=== PATIENT | male | born 1955 | race Caucasian/White ===

== ENCOUNTER 2016-07-11 16:01 | Observation (INO) | payer BC ==
[2016-07-11] MEDS ORDERED: fentaNYL 100 MCG/2 ML INJ IVP ONE ×2 (16:25→18:06)
--- NOTE | 2016-07-11 16:30 | EDPHY ---
H & P Stated Complaint: Fell 4ft off ladder onto right side of back, pain with breathing - Personal History Current Tetanus Diphtheria and Acellular Pertussis (TDAP): Yes - Medical/Surgical History Hx Asthma: No Hx Chronic Respiratory Disease: No Hx Diabetes: No Hx Cardiac Disease: No Hx Renal Disease: No Hx Cirrhosis: No Hx Alcoholism: No Hx HIV/AIDS: No Hx Splenectomy or Spleen Trauma: No Other PMH: HTN, GERD, Hernis, Hypercholesterolemia - Social History Smoking Status: Never smoked Time Seen by Provider: 07/11/16 16:02 HPI/ROS: CHIEF COMPLAINT: right chest and abdominal pain post falling off ladder HISTORY OF PRESENT ILLNESS: 60-year-old male with no anticoagulant use arrives via private vehicle stating that shortly prior to arrival he was standing on a ladder, his feet were at a height of approximately 5 feet when the ladder slipped out and he fell onto the side of the ladder impacting his right ribs and right abdomen. . He is complaining of reproducible pain with inspiration, coughing, palpation to his chest and abdomen No head injury. No genitalia injury. no head injury , no neck pain or injury. No alcohol or drug use. No nausea or vomiting. No peripheral paresthesia, weakness, numbness. No dyspnea. PRIMARY CARE PROVIDER: Dr. Jin Helm REVIEW OF SYSTEMS: A ten point review of systems was performed and is negative with the exception of the items mentioned in the HPI PAST MEDICAL/SURGICAL HISTORY: no anticoagulant use, SOCIAL HISTORY: denies alcohol use at time of incident PHYSICAL EXAM 1) GENERAL: Well-developed, well-nourished, alert and oriented. Appears uncomfortable. Answering questions appropriately. 2) HEAD: Normocephalic, atraumatic 3) HEENT: Pupils equal, round, reactive to light bilaterally. Negative Horners. Nasopharynx, oropharynx, clear. No deformity or angulation of nose. No septal hematoma. No rhinorrhea. No oral trauma. Ears bilaterally with normal tympanic membranes. No hemotympanum. No fluid or blood in the external auditory canal. No raccoon eyes. No Moe sign. T. 4) NECK: Posterior cervical spine is nontender, no stepoff, no effusion. Full range of motion which does not elicit any midline cervical spine pain, no posterior midline tenderness, no step-off. 5) LUNGS: Clear to auscultation bilaterally, no wheezes, no rhonchi, no retractions. No obvious signs of trauma. tender to palpation lower ribs mid axillary line. No visible signs of trauma. No crepitus No flaring, no grunting. Moving symmetrically. . 6) HEART: Regular rate and rhythm, 7) ABDOMEN: Guarding abdomen, tender to palpation right upper quadrant. Palpation of the right lower quadrant elicits right upper quadrant pain as well. No guarding, no rebound, no focal tenderness, no peritoneal signs, no signs of trauma, no ecchymosis 8) MUSCULOSKELETAL: Moving all extremities, no focal areas of tenderness, no obvious trauma. 9) BACK: No midline vertebral tenderness, no fluctuance, no step-off, no obvious trauma, no visual or palpable abnormality. 10) SKIN: No laceration. No abrasion DIFFERENTIAL DIAGNOSIS: In no particular include but limited to rib fracture, rib contusion, pneumothorax, hemothorax, liver fracture, liver contusion ( Mauricio Carrera) Constitutional: Initial Vital Signs Temperature (C) 36.6 C 07/11/16 16:09 Heart Rate 67 07/11/16 16:09 Respiratory Rate 18 07/11/16 16:09 Blood Pressure 139/84 H 07/11/16 16:09 O2 Sat (%) 98 07/11/16 16:09 O2 Delivery Mode Room Air Allergies/Adverse Reactions: No Known Allergies Allergy (Unverified 09/22/15 17:45) Home Medications: Medication Instructions Recorded Ascorbic Acid [Vitamin C 500 mg 500 mg PO 07/11/16 (*)] Ferrous Sulfate [Ferrous Sulf 325 325 mg PO 07/11/16 MG (*)] Losartan Potassium [Cozaar] 100 mg PO 07/11/16 Multivitamins [Multivitamin (*)] 1 tab PO 07/11/16 Omeprazole [Omeprazole] 20 mg PO 07/11/16 Simvastatin [Simvastatin] 40 mg PO 07/11/16 ED Images - Male Images Male Torso Head Front/Back: 1 - Areas objective and subjective pain Medical Decision Making - Diagnostics Imaging Results: Imaging Impressions Abdomen CT 07/11/16 16:36 Impression: 1. No evidence of solid organ or bowel injury. 2. No free fluid or fracture. 3. No evidence of aortic injury. Findings discussed with Emergency Department physician, Mauricio Carrera on 12/2016 at 5:[address] 07/11/16 16:36 Impression: 1. Acute right 6th through 11th rib fractures. 2. Tiny right anterobasilar pneumothorax. 3. Subtle pulmonary contusion versus aspiration in the right upper and lesser degree left upper lobe. No pulmonary laceration. 4. Minimal calcified coronary plaque. 5. No evidence of acute aortic injury. Findings discussed with Emergency Department Physician [employer] Operations Engineer, Matt Carrera PA-C, on July 11, 2016 at 1724 hours. Images reviewed by myself (Mauricio Carrera) ED Course/Re-evaluation: 5:25 p.m.: Phone consultation Dr. Rafael Barrow will evaluate patient ER and plan on admission. Patient's pain is controlled at this time and he agrees to admission. (Mauricio Carrera) Other Provider: PHYSICIAN DOCUMENTATION: The patient was evaluated and managed by the Physician [employer] Operations Engineer and myself. I have reviewed the chart and agree with the findings and plan of care as documented. In addition, I examined the patient myself at 1720. History confirmed as fall off a ladder this afternoon. Physical findings as follows: Speaks full sentences, breath sounds equal to auscultation. CT reviewed with Deandre WALKER. Plan for surgical consultation in the emergency department for trauma with multiple rib fractures and pneumothorax.. I am the secondary supervising physician. (Marek Hung) - Data Points Laboratory Results: Laboratory Results 07/11/16 16:30 07/11/16 16:30 07/11/16 07/11/16 07/11/16 16:30 16:30 16:29 WBC 12.68 10^3/uL H 10^3/uL (3.80-9.50) RBC 4.69 10^6/uL 10^6/uL (4.40-6.38) Hgb 14.3 g/dL g/dL (13.7-17.5) POC Hgb 14.6 gm/dL gm/dL (14.5-17.3) Hct 42.3 % % (40.0-51.0) POC Hct 43 % % (42.8-50.6) MCV 90.2 fL fL (81.5-99.8) MCH 30.5 pg pg (27.9-34.1) MCHC 33.8 g/dL g/dL (32.4-36.7) RDW 12.9 % % (11.5-15.2) Plt Count 540 10^3/uL H 10^3/uL (150-400) MPV 9.2 fL fL (8.7-11.7) Neut % (Auto) 85.0 % H % (39.3-74.2) Lymph % (Auto) 7.3 % L % (15.0-45.0) [place] % (Auto) 6.4 % % (4.5-13.0) Eos % (Auto) 0.5 % L % (0.6-7.6) Baso % (Auto) 0.4 % % (0.3-1.7) Nucleat RBC Rel Count 0.0 % % (0.0-0.2) Absolute Neuts (auto) 10.78 10^3/uL H 10^3/uL (1.70-6.50) Absolute Lymphs (auto) 0.93 10^3/uL L 10^3/uL (1.00-3.00) Absolute Monos (auto) 0.81 10^3/uL H 10^3/uL (0.30-0.80) Absolute Eos (auto) 0.06 10^3/uL 10^3/uL (0.03-0.40) Absolute Basos (auto) 0.05 10^3/uL 10^3/uL (0.02-0.10) Absolute Nucleated RBC 0.00 10^3/uL 10^3/uL (0-0.01) Immature Gran % 0.4 % % (0.0-1.1) Immature Gran # 0.05 10^3/uL 10^3/uL (0.00-0.10) POC Sodium 140 mEq/L mEq/L (134-144) Sodium 136 mEq/L mEq/L (134-144) POC Potassium 3.9 mEq/L mEq/L (3.3-5.0) Potassium 4.6 mEq/L mEq/L (3.5-5.2) POC Chloride 102 mEq/L mEq/L (96-108) Chloride 103 mEq/L mEq/L (97-110) Carbon Dioxide 24 mEq/l mEq/l (22-31) Anion Gap 9 mEq/L mEq/L (8-16) POC BUN 23 mg/dL mg/dL (7-23) BUN 23 mg/dL mg/dL (7-23) Creatinine 1.0 mg/dL mg/dL (0.7-1.3) POC Creatinine 1.0 mg/dL mg/dL (0.8-1.5) Estimated GFR > 60 Glucose 91 mg/dL mg/dL (70-100) POC Glucose 98 mg/dL mg/dL (70-100) Calcium 9.6 mg/dL mg/dL (8.5-10.4) Medications Given: Discontinued Medications Fentanyl (Sublimaze) 50 mcg IVP EDNOW ONE Stop: 07/11/16 16:26 Last Admin: 07/11/16 16:40 Dose: 50 mcg Fentanyl (Sublimaze) 50 mcg IVP EDNOW ONE Stop: 07/11/16 18:07 Last Admin: 07/11/16 18:16 Dose: 50 mcg Point of Care Test Results: 07/11/16 16:29 POC Sodium 140 POC Potassium 3.9 POC Chloride 102 POC BUN 23 POC Creatinine 1.0 POC Glucose 98 Departure - Departure Disposition: [facility] Inpatient Acute Clinical Impression: Pneumothorax on right Ribs, multiple fractures Qualifiers: Encounter type: initial encounter Fracture type: closed Laterality: right Qualified Code(s): S22.41XA - Multiple fractures of ribs, right side, initial encounter for closed fracture Condition: Good
[2016-07-11 16:45] LABS: % IMMATURE GRANULYOCYTES 0.4 % (0.0-1.1); ABSOLUTE IMMATURE GRANULOCYTES 0.05 10^3/uL (0.00-0.10); ADD DIFF? NO; ADD MORPH? NO; ADD SCAN? NO; ATYPICAL LYMPHOCYTE FLAG 0 (0-99); FRAGMENT RBC FLAG 0 (0-99); HEMATOCRIT 42.3 % (40.0-51.0); HEMOGLOBIN 14.3 g/dL (13.7-17.5); LEFT SHIFT FLG 10 (0-99); LIPEMIA HEMOLYSIS FLAG 90 (0-99); MEAN CELL HEMOGLOBIN 30.5 pg (27.9-34.1); MEAN CELL HEMOGLOBIN CONCENTR. 33.8 g/dL (32.4-36.7); MEAN CELL VOLUME 90.2 fL (81.5-99.8); MEAN PLATELET VOLUME 9.2 fL (8.7-11.7); PLATELET CLUMPS FLAG 0 (0-99); PLATELET COUNT 540 10^3/uL (150-400); RED BLOOD CELL COUNT 4.69 10^6/uL (4.40-6.38); RED CELL DISTRIBUTION WIDTH 12.9 % (11.5-15.2)
[2016-07-11] MEDS ORDERED: IOPAMIDOL (ISOVUE-300) 100 ML BTL ONE (16:48)
[2016-07-11 16:59] LABS: ANION GAP 9 mEq/L (8-16); CALCIUM 9.6 mg/dL (8.5-10.4); CARBON DIOXIDE 24 mEq/l (22-31); CHLORIDE 103 mEq/L (97-110); GLOMERULAR FILTRATION RATE > 60; GLUCOSE 91 mg/dL (70-100); POTASSIUM 4.6 mEq/L (3.5-5.2); SODIUM 136 mEq/L (134-144)
[2016-07-11] MEDS ORDERED: ONDANSETRON DISINTEGRATING 4 MG TAB PO PRN (18:20)
[2016-07-11] MEDS ORDERED: ONDANSETRON 4 MG/2 ML VIAL IVP PRN (18:20)
--- NOTE | 2016-07-11 18:20 | PDGENHP ---
History and Physical - Chief Complaint right chest pain - History of Present Illness Mr. Tavarez is a pleasant gentleman who was painting his bedroom this afternoon when the ladder went out from under him at 5 rungs up. He fell to the right side and landed on the ladder. He came in after experiencing sharp pains in the right chest with his . He was seen by Jayden Carrera PA-C who ordered a CT and multiple right sided rib fractures and a pneumothorax were noted. Trauma Surgical consult was requested. History Information - Allergies/Home Medication List Allergies/Adverse Reactions: No Known Allergies Allergy (Unverified 09/22/15 17:45) Home Medications: Ascorbic Acid [Vitamin C 500 mg (*)] 500 mg PO HS 07/11/16 [Last Taken Unknown] Ferrous Sulfate [Ferrous Sulf 325 MG (*)] 325 mg PO HS 07/11/16 [Last Taken Unknown] Losartan Potassium [Cozaar] 100 mg PO HS 07/11/16 [Last Taken 07/10/16] Multivitamins [Multivitamin (*)] 1 tab PO HS 07/11/16 [Last Taken Unknown] Omeprazole [Omeprazole] 20 mg PO HS 07/11/16 [Last Taken 07/10/16] Simvastatin [Simvastatin] 40 mg PO HS 07/11/16 [Last Taken 07/10/16] I have personally reviewed and updated: family history, medical history, social history (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 right shoulder surgery. left forearm surgery - Social History Smoking Status: Never smoked Alcohol Use: Rarely Drug Use: None Review of Systems Constitutional: Reports: recent injury EENMT: Reports: no symptoms Cardiac: Reports: chest pain (right lateral chest wall) Respiratory: Reports: shortness of breath Gastrointestinal: Reports: no symptoms Genitourinary: Reports: no symptoms Muscolosketal: Reports: other (right lateral chest wall pain, denies back or neck pain) Neurological: Reports: no symptoms, other (denies weakness, paresthesias, LOC/ head injury) Physical Exam Temp Pulse Resp BP Pulse Ox 36.6 C 67 18 139/84 H 98 07/11/16 16:09 07/11/16 16:09 07/11/16 16:09 07/11/16 16:09 07/11/16 16:09 Constitutional: appears nourished, uncomfortable Eyes: PERRL, EOMI, other (NCAT/trachea midline) Cardiovascular: regular rate and rhythym Peripheral Pulses: 3+: carotid (R), carotid (L), femoral (R), femoral (L), dorsalis-pedis (R), dorsalis-pedis (L) Respiratory: reduced air movement Gastrointestinal: normoactive bowel sounds, soft, non-tender abdomen Genitourinary: no bladder fullness Skin: warm, normal color Musculoskeletal: full muscle strength, other (no tenderness over the cervical, thoracic or lumbar spine) Neurologic: AAOx3, sensation intact bilaterally, CN II-XII Intact, other (DTRs symmetrical/no motor weakness) Lab Data & Imaging Review 07/11/16 16:30 07/11/16 16:30 WBC 12.68 10^3/uL (3.80-9.50) H 07/11/16 16:30 RBC 4.69 10^6/uL (4.40-6.38) 07/11/16 16:30 Hgb 14.3 g/dL (13.7-17.5) 07/11/16 16:30 POC Hgb 14.6 gm/dL (14.5-17.3) 07/11/16 16:29 Hct 42.3 % (40.0-51.0) 07/11/16 16:30 POC Hct 43 % (42.8-50.6) 07/11/16 16:29 MCV 90.2 fL (81.5-99.8) 07/11/16 16:30 MCH 30.5 pg (27.9-34.1) 07/11/16 16:30 MCHC 33.8 g/dL (32.4-36.7) 07/11/16 16:30 RDW 12.9 % (11.5-15.2) 07/11/16 16:30 Plt Count 540 10^3/uL (150-400) H 07/11/16 16:30 MPV 9.2 fL (8.7-11.7) 07/11/16 16:30 Neut % (Auto) 85.0 % (39.3-74.2) H 07/11/16 16:30 Lymph % (Auto) 7.3 % (15.0-45.0) L 07/11/16 16:30 [place] % (Auto) 6.4 % (4.5-13.0) 07/11/16 16:30 Eos % (Auto) 0.5 % (0.6-7.6) L 07/11/16 16:30 Baso % (Auto) 0.4 % (0.3-1.7) 07/11/16 16:30 Nucleat RBC Rel Count 0.0 % (0.0-0.2) 07/11/16 16:30 Absolute Neuts (auto) 10.78 10^3/uL (1.70-6.50) H 07/11/16 16:30 Absolute Lymphs (auto) 0.93 10^3/uL (1.00-3.00) L 07/11/16 16:30 Absolute Monos (auto) 0.81 10^3/uL (0.30-0.80) H 07/11/16 16:30 Absolute Eos (auto) 0.06 10^3/uL (0.03-0.40) 07/11/16 16:30 Absolute Basos (auto) 0.05 10^3/uL (0.02-0.10) 07/11/16 16:30 Absolute Nucleated RBC 0.00 10^3/uL (0-0.01) 07/11/16 16:30 Immature Gran % 0.4 % (0.0-1.1) 07/11/16 16:30 Immature Gran # 0.05 10^3/uL (0.00-0.10) 07/11/16 16:30 POC Sodium 140 mEq/L (134-144) 07/11/16 16:29 Sodium 136 mEq/L (134-144) 07/11/16 16:30 POC Potassium 3.9 mEq/L (3.3-5.0) 07/11/16 16:29 Potassium 4.6 mEq/L (3.5-5.2) 07/11/16 16:30 POC Chloride 102 mEq/L (96-108) 07/11/16 16:29 Chloride 103 mEq/L (97-110) 07/11/16 16:30 Carbon Dioxide 24 mEq/l (22-31) 07/11/16 16:30 Anion Gap 9 mEq/L (8-16) 07/11/16 16:30 POC BUN 23 mg/dL (7-23) 07/11/16 16:29 BUN 23 mg/dL (7-23) 07/11/16 16:30 Creatinine 1.0 mg/dL (0.7-1.3) 07/11/16 16:30 POC Creatinine 1.0 mg/dL (0.8-1.5) 07/11/16 16:29 Estimated GFR > 60 07/11/16 16:30 Glucose 91 mg/dL (70-100) 07/11/16 16:30 POC Glucose 98 mg/dL (70-100) 07/11/16 16:29 Calcium 9.6 mg/dL (8.5-10.4) 07/11/16 16:30 Visualized and Interpreted Chest x-ray results: Yes Visualized and Interpreted imaging results: Yes Interpretation: CT chest reviewed/right lateral rib fx 6-11/small right pneumothorax/small ant RML pulmonary contusion Assessment & Plan Assessment: s/p fall from ladder Pneumothorax on right (Acute) Ribs, multiple fractures (Acute) HTN hyperlipidemia Plan: Admit observation [facility] Trauma Service/repeat serial CXR chest tube if pneumothorax increases analgesia/VTE prophylaxis discussed restrictions on activity/air travel Marilou Barrow MD, FACS
[2016-07-11] MEDS ORDERED: HYDROmorphONE/DILAUDID 1 MG/ML SYR IVP PRN (18:25)
[2016-07-11] MEDS: HYDROmorphONE/DILAUDID 4 MG TAB PO PRN ×2 (20:29→23:33)
[2016-07-11] MEDS ORDERED: PANTOPRAZOLE SODIUM 40 MG TAB PO SCH (21:00)
[2016-07-11] MEDS ORDERED: ATORVASTATIN CALCIUM 20 MG TAB PO SCH (21:00)
[2016-07-11] MEDS ORDERED: LOSARTAN POTASSIUM 50 MG TAB PO SCH (21:00)
[2016-07-11] MEDS: DIAZEPAM 5 MG TAB PO PRN (22:53)
[2016-07-11] MEDS: KETOROLAC 15 MG/1 ML SDV IVP SCH (22:53)
[2016-07-12] MEDS: HYDROmorphONE/DILAUDID 4 MG TAB PO PRN ×2 (04:04→13:40)
[2016-07-12] MEDS: DIAZEPAM 5 MG TAB PO PRN ×2 (04:05→13:42)
[2016-07-12 04:45] LABS: % IMMATURE GRANULYOCYTES 0.3 % (0.0-1.1); ABSOLUTE IMMATURE GRANULOCYTES 0.03 10^3/uL (0.00-0.10); ADD DIFF? NO; ADD MORPH? NO; ADD SCAN? NO; ATYPICAL LYMPHOCYTE FLAG 20 (0-99); FRAGMENT RBC FLAG 0 (0-99); HEMATOCRIT 38.3 % (40.0-51.0); HEMOGLOBIN 12.9 g/dL (13.7-17.5); LEFT SHIFT FLG 0 (0-99); LIPEMIA HEMOLYSIS FLAG 80 (0-99); MEAN CELL HEMOGLOBIN 30.3 pg (27.9-34.1); MEAN CELL HEMOGLOBIN CONCENTR. 33.7 g/dL (32.4-36.7); MEAN CELL VOLUME 89.9 fL (81.5-99.8); MEAN PLATELET VOLUME 9.3 fL (8.7-11.7); PLATELET CLUMPS FLAG 20 (0-99); PLATELET COUNT 497 10^3/uL (150-400); RED BLOOD CELL COUNT 4.26 10^6/uL (4.40-6.38); RED CELL DISTRIBUTION WIDTH 13.1 % (11.5-15.2)
[2016-07-12 05:01] LABS: ANION GAP 6 mEq/L (8-16); CALCIUM 8.7 mg/dL (8.5-10.4); CARBON DIOXIDE 24 mEq/l (22-31); CHLORIDE 104 mEq/L (97-110); CREATININE 0.9 mg/dL (0.7-1.3); GLOMERULAR FILTRATION RATE > 60; GLUCOSE 105 mg/dL (70-100); POTASSIUM 4.4 mEq/L (3.5-5.2); SODIUM 134 mEq/L (134-144)
[2016-07-12] MEDS: KETOROLAC 15 MG/1 ML SDV IVP SCH ×2 (05:18→11:10)
[2016-07-12] MEDS ORDERED: LACTULOSE 20 GM/30 ML UDCUP PO PRN (07:32)
[2016-07-12] MEDS ORDERED: MAGNESIUM HYDROXIDE 30 ML UDCUP PO PRN (07:32)
[2016-07-12] MEDS ORDERED: BISACODYL 10 MG SUPP PR PRN (07:32)
[2016-07-12] MEDS ORDERED: POLYETHYLENE GLYCOL 3350 17 GM PKT PO PRN (07:32)
[2016-07-12 08:03] VITALS: RESP 18; TEMP 98.7
[2016-07-12] MEDS ORDERED: SENNOSIDES/DOCUSATE SODIUM TAB PO SCH (09:00)
[2016-07-12 12:23] VITALS: BP 108/66; PULSE 58; O2SAT 96
--- NOTE | 2016-07-12 13:30 | TRAUMAPN ---
Assessment/Plan: 60yo M HD#2 s/p fall onto ladder c rib fx, ptx, contusion - Neuro: pain controlled with ibu, PO dilaudid and valium. No LOC, no need for cog eval - Pulm: JOEL, discussed pulm toilet. CXR today shows persistent small apical PTX. Will have him follow up as outpatient to ensure stability/resolution - CV: HDS - Abd: soft, ND, NT, ventura diet - : voiding - Heme: stable, no large hemotx on imaging - Dispo: likely dc today, outpatient rehab and follow up with me to ensure CXR stability Subjective: Feels well, some splinting with cough Objective: Vital Signs Temp Pulse Resp BP Pulse Ox 37.1 C 58 L 18 108/66 96 07/12/16 12:00 07/12/16 12:00 07/12/16 12:00 07/12/16 12:00 07/12/16 12:00 Laboratory Results 07/12/16 04:27 07/12/16 04:27 07/11/16 07/12/16 07/13/16 05:59 05:59 05:59 Intake Total 30 Balance 30
--- NOTE | 2016-07-12 19:07 | GDS ---
[f rep st] DISCHARGE SUMMARY DISCHARGE DIAGNOSES: 1. Traumatic rib fractures on the right side, numbering 6 through 11. 2. Right traumatic pneumothorax. 3. Pulmonary contusion. HOSPITAL COURSE: The patient was admitted from the emergency department on the afternoon of the 10t h after he fell from a ladder. On his initial evaluation, he was stable and had the above injuries based upon imaging. He was subsequently admitted to the general medical floor where his diet was ad vanced and well tolerated. His pain was well controlled on oral narcotics. On day of discharge, he had a followup film which showed that he still had a persistent small right pneumothorax which had not increased in size. He was subsequently stable on room air and discharged home in stable conditi on. FOLLOWUP: He will follow up with me in 1 week. He will have a chest film prior to that so that we can evaluate whether or not this pneumothorax has enlarged or more than likely resolved. Strict ret urn precautions were given should he have shortness of breath in the meantime. DISPOSITION: Home. /[id number]/MODL
== END 2016-07-12 15:45 | disposition home or self-care (01) ==
LOC: F3E 19:57
PROVIDERS: ADMIT Surgery; ATTEND Surgery
DX: S22.41XA Multiple fractures of ribs, right side, initial encounter for closed fracture (principal); S27.0XXA Traumatic pneumothorax, initial encounter; S27.329A Contusion of lung, unspecified, initial encounter; I10 Essential (primary) hypertension; E78.5 Hyperlipidemia, unspecified; W11.XXXA Fall on and from ladder, initial encounter; Y92.019 Unspecified place in single-family (private) house as the place of occurrence of the external cause
CPT/HCPCS: 71010; 71260; 74177; 96374; 96376; 97161; 97165; 99285; G0378; G8978; G8979; G8980; 82947-QW; J1885; J3010; Q9967

== ENCOUNTER → 2016-07-19 | Outpatient (CLI) | payer BC | LOC: FIMAGING 10:39 | PROVIDERS: ATTEND Internal Medicine | DX: S27.2XXD Traumatic hemopneumothorax, subsequent encounter (principal); S21.90XD Unspecified open wound of unspecified part of thorax, subsequent encounter; W11.XXXD Fall on and from ladder, subsequent encounter ==